=== PATIENT | female | born 1985 | race African-American/Black ===

== ENCOUNTER 2017-01-16 13:26 | Emergency (ER) | payer OTHER ==
--- NOTE | ~2017-01-16 | CR173 ---
[facility] A Service of [facility] & [facility] & [facility] RADIOLOGY TEXT RESULTS PATIENT: YUKI DAVIS LOCATION: CFTX : 87 UNIT #: [id number] AGE: [address]: Mi Irizarry SEX: F ORDER DR: [id number] [facility] [address] [place], [place] [address] [id number] E MR#: [id number] Acc #: [id number] NAME: YUKI DAVIS : 1985 SEX: F STUDY DATE/TIME: 01/16/2017 14:57 UNIT: [facility] ROOM: STUDY DESCRIPTION: CR Knee 3 Views Rt Attending Physician: Mi Irizarry Pa-C Ordering Physician: [facility] MEDICAL IMAGING REPORT This report is preliminary unless electronic signature is present EXAM Right knee 3 views HISTORY Knee pain for 1 day. Injury yesterday. FINDINGS AP and lateral projection of the knee shows smooth articular anatomy without indication of fracture or dislocation at the major weight-bearing surface of the knee. There is no indication of radiopaque foreign body about the knee surface or joint effusion. IMPRESSION Normal knee. Dictated by... Dio Lopes M.D. THIS IS AN ELECTRONICALLY VERIFIED REPORT Dio Lopes M.D. at 01/17/2017 10:54 PM DFL/pcl TD: 01/17/2017 07:39 JOB #: [id number] MEDICAL IMAGING REPORT Page 1 of 1 COPY
== END 2017-01-16 16:07 | disposition home or self-care (01) ==
LOC: CED 13:26 → CFTX 13:26
DX: S83.91XA Sprain of unspecified site of right knee, initial encounter (principal); F17.210 Nicotine dependence, cigarettes, uncomplicated; X58.XXXA Exposure to other specified factors, initial encounter; Y92.009 Unspecified place in unspecified non-institutional (private) residence as the place of occurrence of the external cause
CPT/HCPCS: 29530; 73562; 99283